=== PATIENT | male | born 1935 | race Caucasian/White ===

== ENCOUNTER → 2018-02-04 08:16 | Outpatient (CLI) | payer MEDICARE, OTHER, SELFPAY ==
--- NOTE | 2018-02-04 | DI.US.S_ITS ---
PROCEDURE: US ABDOMEN COMPLETE INDICATIONS: INCREASED LIVER FUNCTION TECHNIQUE: Real-time scanning was performed of the abdominal and retroperitoneal organs, with image documentation. COMPARISON: [facility], CT, CHEST ABDOMEN WITH CONTRAST, 01/22/2010, 10:51. [facility], CT, ABDOMEN/PELVIS WITH CONTRAST, 02/20/2017, 12:00. FINDINGS: Liver: Liver is diffusely heterogeneous, coarse in echotexture and enlarged Gallbladder: No gallstones identified. Normal gallbladder wall. No pericholecystic fluid. Negative sonographic Mcdowell sign. Biliary ducts: Intrahepatic bile ducts are non-dilated. Extrahepatic bile duct caliber measures 5.1 mm. Normal is 6-7 mm or less in diameter, or 10 mm or less post-cholecystectomy. Pancreas: Visualized portions of the pancreas are sonographically normal. Spleen: Spleen is enlarged at 26 cm in size and homogeneous in echotexture. Kidneys: Kidneys are normal in size and echotexture. Right kidney measures 11.4 cm long; left kidney measures 11.0 cm long. No hydronephrosis or nephrolithiasis. No solid masses. Aorta: Visualized aorta is normal in caliber at less than 3 cm. Iliacs: Proximal common iliac arteries are normal in caliber at less than 2.5 cm. IVC: Intrahepatic inferior vena cava is patent. Miscellaneous: No free abdominal fluid. Doppler assessment demonstrates a patency of the main portal vein, right and left portal vein as well as the right, mid and left hepatic veins. IMPRESSION: 1. Heterogeneous and coarse appearance of the hepatic parenchyma with liver enlargement as was seen on prior CT scan. 2. Marked splenomegaly redemonstrated. 3. No ascites. Dictated by: Ino VARELA Interpreted: Heavenly Auguste MD on 02/04/2018 at 11:10 Approved by: Heavenly Auguste M.D. on 02/04/2018 at 15:08
== END ==
PROVIDERS: PCP Family Medicine; Visit Provider Family Medicine
DX: R94.5 Abnormal results of liver function studies (principal); R16.1 Splenomegaly, not elsewhere classified
CPT/HCPCS: 76700

== ENCOUNTER 2018-02-05 06:17 | Emergency (ER) | payer MEDICARE, OTHER, SELFPAY ==
--- NOTE | 2018-02-05 06:32 | PC.NURSE ---
He states he was cleaning nare with a q-tip this am and he pushed it all the way into r nare.There is slight dried blood in his right nare.Air way patent.
--- NOTE | 2018-02-05 06:52 | ED_ITS ---
HPI - Epistaxis General Chief complaint: Nasal Problem Stated complaint: has a QTip stuck in his nose History of Present Illness HPI Narrative: HPI 82-year-old male who takes no blood thinners presents for treatment of a Q-tip in his right naris. Patient was attempting to clean his right nostril when he lost the end of his Q-tip. The patient then attempted to blindly retrieve the Q- tip with tweezers causing scant anterior epistaxis. Patient denies headache, changes in vision or hearing. ROS with no recent constitutional symptoms. Exam Gen: Pleasant, nontoxic-appearing, resting comfortably. HEENT: scant bright dried red blood the right naris. Visual inspection with the otoscope of the right naris with scant bright red blood and an inability to visualize the Q-tip or other foreign bodies. Posterior oropharynx with scant dark coagulated blood, no active bleeding, no Q-tip visualized. NC, AT, PEERL, EOMI. Resp: Unlabored respirations with a normal work of breathing. Card: Extremities warm and well perfused. GI: Non-distended. : Deferred MSK: No visible deformities, strength and tone without visually appreciable deficit. Neuro: AO x 3, no facial asymmetry, vision and hearing WNL. Heme/Lymph: Deferred Skin: Normal color with no visible lesions (other than noted above). Psych: Mood and affect appropriate. MDM Previous chart, nursing note, and vitals reviewed. A: 82-year-old male who takes no blood thinners presents for treatment of a Q- tip in his right naris. DDx & Evaluation: oxymetazoline applied to right nostril, patient evacuated right nostril, unable to visualize Q-tip. Right nostril irrigated with 10 mL normal saline, patient evacuated right nostril. Unable to visualize Q-tip. Oxymetazoline reapplied by patient's right naris with vigorous blowing of the right nostril, Q-tip expelled from nostril, both cotton buds intact. No postnasal bleeding or right anterior epistaxis on repeat exam. Patient discharged with PCP follow-up as needed. Impression: right nostril foreign body (please reference below for remainder of encounter information) Related Data Home Medications Medication Instructions Recorded Confirmed aspirin 81 mg PO QDAY #0 05/11/13 diltiazem HCl 360 mg PO HS #0 08/05/17 torsemide mg PO #0 12/08/17 Previous Rx's Medication Instructions Recorded gabapentin [Neurontin] 300 mg PO TID #540 tab 08/20/16 ibrutinib [Imbruvica] 140 mg PO TID #90 cap 12/26/16 valacyclovir [Valtrex] 1,000 mg PO TID #21 tab 10/28/17 [facility] Social History Smoking Status: Never smoker Discharge Plan Departure Prescriptions: No Action aspirin 81 MG tablet,delayed release (DR/EC) 81 mg PO QDAY Qty: 0 RF: 0 gabapentin [Neurontin] 300 MG capsule 300 mg PO TID Qty: 540 RF: 0 ibrutinib [Imbruvica] 140 MG capsule 140 mg PO TID Qty: 90 RF: 2 diltiazem HCl 360 MG capsule,extended release 24 hr 360 mg PO HS Qty: 0 RF: 0 valacyclovir [Valtrex] 1,000 MG tablet 1,000 mg PO TID Qty: 21 RF: 1 torsemide 20 MG tablet PO Qty: 0 RF: 0
== END 2018-02-05 06:58 | disposition home or self-care (01) ==
PROVIDERS: Emergency Provider Emergency Medicine; PCP Family Medicine
DX: T17.1XXA Foreign body in nostril, initial encounter (principal)
CPT/HCPCS: 99282

== ENCOUNTER 2018-02-07 21:04 | Inpatient (IN) | payer MEDICARE, OTHER, SELFPAY ==
[2018-02-07 21:14] VITALS: BP 155/90; PULSE 91; RESP 18; TEMP 37; O2SAT 91
--- NOTE | 2018-02-07 21:57 | PC.NURSE ---
family reports worsening confusion for several days following starting librium r/t etoh detox. on exam, pt is alert, oriented to place/self, disoriented to situation, negative FAST exam, lung sounds diminished r>l, abd distended/soft/nontender, +3 pitting edema r>l reported as baseline. Denies headache/soa/nausea/vomiting/dysuria/fever/chills/pain/discomfort, reports witnessed fall 2 days ago without injury.
--- NOTE | 2018-02-07 22:03 | DI.RAD.S_ITS ---
PROCEDURE: XR CHEST 1V INDICATIONS: ALTERED MENTAL STATUS TECHNIQUE: One view of the chest was acquired. COMPARISON: [facility], CR, XR CHEST 2V, 01/26/2018, 11:03. FINDINGS: Surgical changes and devices: Right lung surgical staple lines and right hilar surgical clips. There is right-sided volume loss. Lungs and pleura: No pleural effusions or pneumothorax. No acute consolidation. Scattered scarring/atelectasis. Previous left pleural effusion appears resolved. Scattered presumed high density calcified granulomas appear unchanged for example in the lateral left midlung. Mediastinum: Mediastinal contours appear normal. Heart size is normal. Bones and chest wall: No suspicious bony lesions. Overlying soft tissues appear unremarkable. IMPRESSION: No acute disease. Resolved left pleural effusion elsewhere no interval change. Dictated by: Dwayne Rodgers M.D. on 02/08/2018 at 7:21 Approved by: Dwayne Rodgers M.D. on 02/08/2018 at 7:23
--- NOTE | 2018-02-07 22:03 | DI.CT.S_ITS ---
PROCEDURE: CT HEAD/BRAIN WO CON INDICATIONS: ALTERED MENTAL STATUS TECHNIQUE: Noncontrast 4.5 mm thick angled axial sections acquired from the foramen magnum to the vertex, with coronal and sagittal reformats. For radiation dose reduction, the following was used: automated exposure control, adjustment of mA and/or kV according to patient size. COMPARISON: None. FINDINGS: Image quality: Excellent. CSF spaces: Basal cisterns are patent. No extra-axial fluid collections. The ventricles are symmetric in size and shape. Brain: No intracranial bleeds or masses. There is cerebral volume loss for age, with resultant ventricular and sulcal prominence. There are periventricular and deep white matter chronic small vessel ischemic changes. There is intracranial internal carotid artery atherosclerosis. Skull and face: Calvarium and visualized facial bones appear intact, without suspicious lesions. Sinuses: Visualized sinuses and mastoids are clear. IMPRESSION: Negative head CT. Dictated by: Dwayne Rodgers M.D. on 02/08/2018 at 7:05 Approved by: Dwayne Rodgers M.D. on 02/08/2018 at 7:06
[2018-02-07 22:19] LABS: Hematocrit 33.7 % (41-53); Hemoglobin 10.8 g/dL (13.5-17.5); Mean Corpuscular Hemoglobin 28.3 PG (26-34); Mean Corpuscular Volume 88.4 fL (80-100); Platelet Count 98 X10^3/uL (150-400); Red Blood Cell Count 3.82 X10^6/uL (4.5-5.9); Red Cell Distribution Width 16.2 % (11.6-14.8)
[2018-02-07 22:20] LABS: Add Manual Diff / Slide Review YES; Calcium 8.6 mg/dL (8.4-10.2); Estimated Glomerular Filt Rate > 60.0 mL/min (>60); Glucose 90 mg/dL (80-110); HEMOLYSIS < 15 (0-50); Magnesium 1.8 mg/dL (1.6-2.3); Potassium 4.3 mmol/L (3.4-5.1); Sodium 134 mmol/L (137-145)
[2018-02-07 22:22] VITALS: BP 142/69; PULSE 88; RESP 14; O2SAT 91
[2018-02-07 22:23] LABS: White Blood Cell Count 86.6 X10^3/uL (4.5-11.0)
[2018-02-07 22:33] LABS: Neutrophils Absolute Manual 6062 /uL (3000-5900); Total Cells Counted 100
[2018-02-07 22:35] LABS: Morphology Comment RARE GIANT PLATELETS
[2018-02-07 22:36] LABS: Smudge Cells 2+
[2018-02-07 22:37] LABS: Troponin I < 0.012 ng/mL (0.01-0.034)
[2018-02-07 22:38] LABS: Procalcitonin 0.07 ng/mL (<0.5)
[2018-02-07] MEDS: LORazepam 2 MG/ML SYRINGE IV (22:38)
[2018-02-07] MEDS: SODIUM CHLORIDE 0.9% 1,000 ML 500 ML IV (22:39)
[2018-02-07 23:00] VITALS: BP 143/63; PULSE 95; RESP 15; O2SAT 93
[2018-02-07] MEDS: MAGNESIUM SULFATE 2 GM, FOLIC ACID 1 MG, THIAMINE 100 MG, MULTIVITAMIN 10 ML in SODIUM ... IV (23:50)
[2018-02-07 23:52] VITALS: BP 137/63; PULSE 90; RESP 22; O2SAT 92
[2018-02-08] VITALS (17 sets, daily range): BP systolic 113–144; BP diastolic 40–79; PULSE 75–101; RESP 16–25; TEMP 36.7–37.2; O2SAT 88–99; BMI 29.9
--- NOTE | 2018-02-08 00:59 | PC.NURSE ---
assisted pt with urinal and standing position for void. Pt had increased RR and work of breathing, labored breathing with mild exertion. o2 sat at 86% in RA when returned to bed. Providing o2 by NC on 3L and pt appears to be more comfortable. informed MD and the above.
[2018-02-08 01:08] LABS: Appearance Urine UA CLEAR; Bilirubin Urine UA NEGATIVE (NEGATIVE); Color Urine UA YELLOW; Glucose Urine UA NEGATIVE (Normal); Ketones Urine UA NEGATIVE (NEGATIVE); Leukocyte Esterase Urine UA TRACE (NEGATIVE); Nitrite Urine UA NEGATIVE (NEGATIVE); Occult Blood Urine UA NEGATIVE (Negative); Protein Urine UA NEGATIVE (Negative)
[2018-02-08 01:10] LABS: Bacteria Urine Occasional (0-1); Squamous Epithelial Cell Urine 0-1 /HPF; WBC Urine 0-1/HPF (0-5/HPF)
[2018-02-08 01:11] LABS: Amorphous Sediment Urine 1+
[2018-02-08 01:12] LABS: Culture Indicated Urine Specimen Cultured
--- NOTE | 2018-02-08 01:12 | PC.NURSE ---
Pt soundly sleeping with light snoring at this time. O2 sat at 86-89% on 3LNC. RR 22/min abdominal breathing.
--- NOTE | 2018-02-08 01:14 | PC.NURSE ---
pt sleeping soundly with light snoring. o2 sat at 86-92% on 3LNC with RR 22/min.
--- NOTE | 2018-02-08 03:38 | ED_ITS ---
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 Patient is a company by family members who provide history. Patient has had difficulty walking and has believed to been having secondary incontinence as he cannot get up quickly enough. Denies fevers , chills, cough, dysuria, urinary frequency, decreased perineal sensation, back pain. Patient was drinking at least 6 g per day before absence. PCP notated 02/04/18 reviewed and notable for: progressive hairy cell leukemia, patient failing 4th line medical treatment, patient has poor overall performance status. Patient to continue Rituxan. Patient was recently seen by a hairy cell leukemia expert, Dr. Jaime. PCP Dr. Carlos Fry M/S/F/SocHx notable for: please see HPI; remainder reviewed with patient and in chart. ROS: Negative constitutional, eye, cardiovascular, pulmonary, GI, , MSK, skin , neurologic, psychiatric, endocrine unless noted in the HPI. Exam Gen: Pleasant, non-toxic appearing, resting comfortably. Appears mildly confused. HEENT: NC, AT, PEERL, EOMI. Resp: Clear to auscultation bilaterally, normal work of breathing, no accessory muscle usage. Card: Regular rate and rhythm with no murmurs, rubs, or gallops, extremities warm and well perfused. Bilateral lower extremities with 2+ pitting edema to the knees. GI: Non-tender to palpation throughout all quadrants, no focal tenderness at McBurney's point, negative Mcdowell's sign, mildly distended, no rebound or guarding. : No suprapubic tenderness to palpation. MSK: No visible deformities, strength and tone without visually appreciable deficit. Skin: Normal color with no visible lesions. Neuro: Gen - Alert, oriented to self, season, but not year, struggles to remember the current President, able to spell the word world forwards but not backwards, no facial asymmetry, no gaze preference, no slurring of speech. Pupils equal and reactive, EOMI, no facial asymmetry, no nystagmus, phonation intact, SCM 5/5 bilaterally. No tremors of extremities. Patient ambulatory with a broad-based markedly unsteady gait requiring immediate assistance to avoid falling. Psych: mildly confused, mood and affect otherwise appropriate. Labs / Imaging: EKG: SR 88 bpm, no ST segment elevations or depressions, no LBBB. CT head: no acute intracranial abnormality. WBC 86.6, HB 10.8, PLT 98, blast cells not reported, sodium 134, potassium 4.3, creatinine 1.00, glucose 90 troponin less than 0.012, pro-calcitonin 0.07 UA - 0-1 WBCs, 0-1 squamous epithelial cells, occasional bacteria, negative blood, negative nitrate, trace leukocyte esterase. CXR: no acute cardiopulmonary disease process. Radiologist read pending. MDM Previous chart, nursing note, labs, imaging, and vitals reviewed. 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 DDx: intracranial process, MAHA, TTP, Wernicke's encephalopathy, delirium tremens, UTI, pneumonia, hyperviscosity syndrome, blast crisis Evaluation: * patient with mild confusion, broad based gait, and unsteadiness. Suspect a multifactorial cause given his recent alcohol cessation and/or Wernicke's encephalopathy as well as apparently worsening hairy cell leukemia. Patient given Ativan, folate, thiamine (a banana bag) without significant change in symptoms. * No clear evidence of active infectious process. Given the absence of fever, meningismus, or headache doubt meningitis or infectious encephalitis. * Patient has relatively recent notable changes in his CBC, on 12/22/17 he had a WBC of 30.1, HB of 12.0, and platelets of 67. Today his hemoglobin as decreased to 10.8, is WBCs have increased to 86.6, and is platelets are now 98. Given these laboratory values as well as an absence of cutaneous findings, or changes strongly doubt MAHA/TTP/HUS. * While the patient has notable leukocytosis, there is no unequivocal evidence of hyperviscosity syndrome, peripheral smear pending. * Doubt blast crisis pending further evaluation. Impression: AMS (please reference below for remainder of encounter information) Related Data Home Medications Medication Instructions Recorded Confirmed aspirin 81 mg PO QDAY #0 05/11/13 diltiazem HCl 360 mg PO HS #0 08/05/17 albuterol sulfate [ProAir HFA] 1 puff INHALATION Q4-6H PRN 02/07/18 02/07/18 atorvastatin 10 mg PO DAILY 02/07/18 02/07/18 chlordiazepoxide HCl 02/07/18 furosemide 20 mg PO DAILY 02/07/18 02/07/18 Previous Rx's Medication Instructions Recorded gabapentin [Neurontin] 300 mg PO TID #540 tab 08/20/16 Allergies Allergy/AdvReac Type Severity Reaction Status Date / Time No Known Drug Allergies Allergy Verified 02/07/18 21:21 Exam Initial Vital Signs Initial Vital Signs: Vital Signs Temperature 98.6 F 02/07/18 21:14 Pulse Rate 91 H 02/07/18 21:14 Respiratory Rate 18 02/07/18 21:14 Blood Pressure 155/90 H 02/07/18 21:14 Pulse Oximetry 91 02/07/18 21:14 Course Orders Ordered: ED Orders 02/07/18 21:46 Basic Metabolic Panel Stat Complete Blood Count AUTO DIFF Stat Magnesium Stat Procalcitonin Stat Troponin I Stat 02/07/18 22:03 CT head/brain wo con Stat XR chest 1V Stat EKG-12 Lead Stat 02/08/18 00:49 Urinalysis and Microscopic Stat Urine Culture Stat 02/08/18 03:34 Complete Blood Count MAN DIFF Stat Magnesium Sulfate 2 gm/ Folic Acid 1 mg/ Thiamine HCl 100 mg / Multivitamins 10 ml/ Sodium Chloride 1,015.2 mls @ 125 mls/hr IV NOW ONE Stop: 02/08/18 06:10 Last Admin: 02/07/18 23:50 Dose: 125 mls/hr Discontinued Medications Sodium Chloride (Normal Saline 0.9%) 1,000 mls @ 1,000 mls/hr IV BOLUS ONE Stop: 02/07/18 23:04 Last Admin: 02/07/18 22:39 Dose: 500 mls/hr Lorazepam (Ativan) 2 mg IV NOW ONE Stop: 02/07/18 22:04 Last Admin: 02/07/18 22:38 Dose: 2 mg Vital Signs - 8 hr 02/07/18 21:14 02/07/18 22:22 02/07/18 23:00 Temperature 98.6 F Pulse Rate 91 H 88 95 H Respiratory Rate 18 14 15 Blood Pressure 155/90 H Blood Pressure [Right Arm] 142/69 H 143/63 H Pulse Oximetry 91 91 93 02/07/18 23:52 02/08/18 01:14 02/08/18 03:28 Temperature Pulse Rate 90 89 96 H Respiratory Rate 22 22 20 Blood Pressure Blood Pressure [Right Arm] 137/63 H 131/64 H 138/70 H Pulse Oximetry 92 88 L 96 MDM - Altered Mental Status Lab Data Result diagrams: 02/07/18 21:46 02/07/18 21:46 Lab Results 02/07/18 02/07/18 02/07/18 Range/Units 21:46 21:46 21:46 WBC 86.6 H* (4.5-11.0) X10^3/uL RBC 3.82 L (4.5-5.9) X10^6/uL Hgb 10.8 L (13.5-17.5) g/dL Hct 33.7 L (41-53) % MCV 88.4 (80-100) fL MCH 28.3 (26-34) PG MCHC 32.0 (30-36) % RDW 16.2 H (11.6-14.8) % Plt Count 98 L (150-400) X10^3/uL Neut % (Auto) Not Reportable Lymph % (Auto) Not Reportable Brewster % (Auto) Not Reportable Eos % (Auto) Not Reportable Baso % (Auto) Not Reportable Total Counted 100 Seg Neutrophils % 7.0 L (38-70) % Lymphocytes % (Manual) 2.0 L (25-45) % Atypical Lymphs % 32.0 H ( - 0) % Monocytes % (Manual) 56.0 H (2-11) % Eosinophils % (Manual) 1.0 L (2-4) % Blast Cells % 2.0 H (-0) % Neutrophils # (Manual) 6062 H (9937-4621) /uL Differential Comment Rare giant platelets RBC Morphology Not Reportable Sodium 134 L (137-145) mmol/L Potassium 4.3 (3.4-5.1) mmol/L Chloride 95.0 L (98-107) mmol/L Carbon Dioxide 32.0 (22-32) mmol/L BUN 17.0 (9-20) mg/dL Creatinine 1.00 (0.66-1.25) mg/dL Estimated GFR > 60.0 (>60) mL/min BUN/Creatinine Ratio 17.0 (6-22) Glucose 90 (80-110) mg/dL Calcium 8.6 (8.4-10.2) mg/dL Magnesium 1.8 (1.6-2.3) mg/dL Troponin I < 0.012 (0.01-0.034) ng/mL Procalcitonin 0.07 (<0.5) ng/mL Urine Color Urine Appearance Urine pH (4.5-8.0) Ur Specific Presto (1.000-1.035) Urine Protein (Negative) Urine Glucose (UA) (Normal) g/dL Urine Ketones (NEGATIVE) Urine Occult Blood (Negative) Urine Nitrate (NEGATIVE) Urine Bilirubin (NEGATIVE) Urine Urobilinogen (0.2) E.U./dL Ur Leukocyte Esterase (NEGATIVE) Urine WBC (0-5/HPF) Ur Squamous Epith Cells Amorphous Sediment Urine Bacteria (None) Ur Culture Indicated? Micro UA Comment 02/08/18 Range/Units 00:49 WBC (4.5-11.0) X10^3/uL RBC (4.5-5.9) X10^6/uL Hgb (13.5-17.5) g/dL Hct (41-53) % MCV (80-100) fL MCH (26-34) PG MCHC (30-36) % RDW (11.6-14.8) % Plt Count (150-400) X10^3/uL Neut % (Auto) Lymph % (Auto) Brewster % (Auto) Eos % (Auto) Baso % (Auto) Total Counted Seg Neutrophils % (38-70) % Lymphocytes % (Manual) (25-45) % Atypical Lymphs % ( - 0) % Monocytes % (Manual) (2-11) % Eosinophils % (Manual) (2-4) % Blast Cells % (-0) % Neutrophils # (Manual) (8314-4208) /uL Differential Comment RBC Morphology Sodium (137-145) mmol/L Potassium (3.4-5.1) mmol/L Chloride (98-107) mmol/L Carbon Dioxide (22-32) mmol/L BUN (9-20) mg/dL Creatinine (0.66-1.25) mg/dL Estimated GFR (>60) mL/min BUN/Creatinine Ratio (6-22) Glucose (80-110) mg/dL Calcium (8.4-10.2) mg/dL Magnesium (1.6-2.3) mg/dL Troponin I (0.01-0.034) ng/mL Procalcitonin (<0.5) ng/mL Urine Color Yellow Urine Appearance Clear Urine pH 7.0 (4.5-8.0) Ur Specific Presto 1.010 (1.000-1.035) Urine Protein Negative (Negative) Urine Glucose (UA) Negative (Normal) g/dL Urine Ketones Negative (NEGATIVE) Urine Occult Blood Negative (Negative) Urine Nitrate Negative (NEGATIVE) Urine Bilirubin Negative (NEGATIVE) Urine Urobilinogen 1.0 (0.2) E.U./dL Ur Leukocyte Esterase Trace H (NEGATIVE) Urine WBC 0-1/hpf (0-5/HPF) Ur Squamous Epith Cells 0-1 /hpf Amorphous Sediment 1+ Urine Bacteria Occasional (0-1) (None) Ur Culture Indicated? Specimen cultured Micro UA Comment Not Reportable
[2018-02-08 03:48] LABS: Hematocrit 32.1 % (41-53); Hemoglobin 10.3 g/dL (13.5-17.5); Mean Corpuscular HGB Conc 32.1 % (30-36); Mean Corpuscular Hemoglobin 28.4 PG (26-34); Mean Corpuscular Volume 88.7 fL (80-100); Platelet Count 90 X10^3/uL (150-400); Red Blood Cell Count 3.62 X10^6/uL (4.5-5.9); Red Cell Distribution Width 16.2 % (11.6-14.8)
[2018-02-08 03:56] LABS: White Blood Cell Count 81.5 X10^3/uL (4.5-11.0)
[2018-02-08] MEDS: LORazepam 2 MG/ML SYRINGE IV (03:57)
--- NOTE | 2018-02-08 04:08 | PC.NURSE ---
pt repeately requesting to get out of bed to blow my nose after the redirection. Pt states must get out of bed to blow nose. Appears to be pt is a bit confused in situation. Informed MD and obtained Ativan order to prevent anxiousness. Pt assisted to urinal and to stand position to void and back to bed. Pt resting with eyes closed. RR increased with labored breathing while standing and try to void.
[2018-02-08 04:09] LABS: Neutrophils Absolute Manual 8150 /uL (3000-5900); Total Cells Counted 100
[2018-02-08 04:10] LABS: Smudge Cells 2+
--- NOTE | 2018-02-08 06:06 | PC.NURSE ---
Late Entry for 0400-pt resting calmly and in NAD after 1mg of Ativan administration. Held additional 1mg Ativan from MD's order at this time.
--- NOTE | 2018-02-08 07:17 | PC.ADMIT ---
[id number] Admission Note: The patient,Doc Chavis,82 y/o, was given written information regarding hospital policies, unit procedures and contact persons. Patient's smoking status: Former smoker. Vital Signs - 8 hr 02/07/18 23:52 02/08/18 01:14 02/08/18 02:00 Temperature Pulse Rate 90 89 88 Respiratory Rate 22 22 20 Blood Pressure Blood Pressure [Right Arm] 137/63 H 131/64 H 113/40 L Pulse Oximetry 92 88 L 99 02/08/18 03:00 02/08/18 03:28 02/08/18 04:00 Temperature Pulse Rate 96 H 96 H 90 Respiratory Rate 22 20 20 Blood Pressure Blood Pressure [Right Arm] 138/70 H 138/70 H 135/67 H Pulse Oximetry 97 96 96 02/08/18 04:30 02/08/18 05:00 02/08/18 06:15 Temperature 98.1 F Pulse Rate 90 92 H 75 Respiratory Rate 20 20 16 Blood Pressure 144/79 H Blood Pressure [Right Arm] 135/67 H 124/69 H Pulse Oximetry 96 98 99 0550-Patient brought to room 226, very drowsy, unable to answer all admit questions, dozing frequently. Short of breath with exertion and while lying flat. SpO2 98% on 2L when recovered, coarse LS anteriorly. Banana bag infusing into LAC PIV. Clothes, shoes, dentures and glasses in room , patient says his wallet is at home. Call light in reach, bed alarm on.
[2018-02-08] MEDS: SODIUM CHLORIDE 0.9% 1,000 ML 125 ML IV (07:50)
[2018-02-08] MEDS: FUROSEMIDE 20 MG/2 ML VIAL IV (09:01)
[2018-02-08] MEDS: CEFTRIAXONE 2 GM/50 ML FROZ.PIGGY IV (09:04)
--- NOTE | 2018-02-08 09:14 | PC.NURSE ---
Addendum entered by Ronel Olmos R.N. 02/08/18 11:42: PT SLIGHTLY MORE AWAKE, REFUSING LIQUIDS AND FOOD AT THIS TIME. INCONTINENT OF URINE, CHANGED AND REPOSITIONED. BED ALARM ON. Original Note: Pt drowsy but arousable, oriented to self place and recognized Dr Mon. Denies pain and shortness of breath. Lab drawing blood cultures, bed alarm on.
--- NOTE | 2018-02-08 13:05 | PM.HP.1 ---
History of Present Illness Chief complaint: CANCER PT,DETOX,DELERIOUS Narrative: Patient is a 82-year-old male with history of hairy cell leukemia and concern for possible alcohol abuse. Patient stopped drinking last Thursday. Has been on Librium since that time. Otherwise patient had been doing well up until Thursday. Most of history is from . Had a cough. But not much. Just slowly started becoming more confused. Was not eating. Normal urine and bowel function. Saint on things. Not his usual self. Was sleeping. No other changes. Has not drank since last week. Patient has not had any fevers or chills. No visual changes. Was not complaining of headaches. Actually was not complaining of any pain. No nausea or vomiting. No cough. No urinary symptoms. No change in bowel movements. No blood in his stool or blood in any other location. Otherwise review of systems is negative. Patient has a history of hairy cell leukemia and significant edema. He has been feeling his leukemia treatment and recently had been seen in [place]. At that point they did not feel that he was healthy enough for some of the other options available. Some concern that he may be approaching the end of his treatment capability. No other changes. Has not been on active therapy. Past medical history. History of smoking. Glucose intolerance Hypertension Rudy cell leukemia Alcohol abuse Past surgical history vasectomy in 1970, appendicitis 1968 lobectomy left lung 2000 Social history. Patient lives with . Retired. Good family support in the area. No street drugs. Recently stopped alcohol. Quit smoking in [facility] Social History household members: spouse Smoking Status: Former smoker Meds Home Medications Medication Instructions Recorded Confirmed Type aspirin 81 mg PO QDAY #0 05/11/13 02/08/18 History diltiazem HCl 360 mg PO HS #0 08/05/17 02/08/18 History albuterol sulfate [ProAir HFA] 2 puff INHALATION Q4-6H PRN 02/07/18 02/08/18 History atorvastatin 10 mg PO DAILY 02/07/18 02/07/18 History chlordiazepoxide HCl 10 mg PO TID 02/07/18 02/08/18 History furosemide 20 mg PO DAILY 02/07/18 02/07/18 History Imbruvica 140 mg PO QAM 02/08/18 02/08/18 History albuterol sulfate [ProAir HFA] 2 puff INHALATION Q4HR PRN 02/08/18 02/08/18 History cholecalciferol (vitamin D3) 2,000 unit PO DAILY 02/08/18 02/08/18 History [Vitamin D3] gabapentin 300 - 600 mg PO BEDTIME PRN 02/08/18 02/08/18 History Generic Name Dose Route Start Last Admin Trade Name Román PRN Reason Stop Dose Admin Acetaminophen 650 mg 02/08/18 08:19 Tylenol PO Q6HR PRN As Needed for Fever/Mild Pain Enoxaparin Sodium 40 mg 02/08/18 09:00 02/08/18 13:06 Lovenox SUBCUT 40 mg DAILY LUIS A Administration Sodium Chloride 1,000 mls @ 125 mls/hr 02/08/18 05:30 02/08/18 08:58 Normal Saline 0.9% IV 100 mls/hr CONT LUIS A Infusion Ceftriaxone Sodium/Dextrose 2 gm in 50 mls @ 100 mls/hr 02/08/18 09:00 02/08/18 10:35 Rocephin IV Infused Q24H LUIS A Infusion Sodium Chloride 1,000 mls @ 100 mls/hr 02/08/18 08:15 Normal Saline 0.9% IV CONT LUIS A Lorazepam 1 mg 02/08/18 05:21 Ativan IV Q2HR PRN Withdraw Allergies Allergy/AdvReac Type Severity Reaction Status Date / Time No Known Drug Allergies Allergy Verified 02/07/18 21:21 Review of Systems Review of Systems Please see history and physical. All systems negative except what described. Systems times 12. Exam Vital Signs (past 8 hours): Vital Signs - 8 hr 02/08/18 06:15 02/08/18 08:15 02/08/18 08:16 Temperature 98.1 F 98.8 F Pulse Rate 75 94 H Respiratory Rate 16 18 Blood Pressure 144/79 H 143/65 H Pulse Oximetry 99 97 02/08/18 08:22 02/08/18 11:23 02/08/18 11:43 Temperature 98.6 F Pulse Rate 92 H Respiratory Rate 16 Blood Pressure 142/69 H Pulse Oximetry 97 97 Pulse Oximetry 97 Oxygen Delivery Method Nasal Cannula Oxygen Flow Rate 2 Narrative Exam Narrative: Sleepy male in no acute distress. Skin with no rash normal turgor. Mucous membranes moist. Pupils PERRLA. No oral lesions. Neck is supple without adenopathy JVD or bruits. Lungs with diffuse mild rhonchi occasional crackles. No retractions. Heart regular rate and rhythm without murmurs clicks rubs or gallops. Abdomen is soft positive bowel sounds skin is 26 cm below left costal margin. Liver is slightly below rib line. No tenderness. Soft. Extremities without clubbing. Does have 2+ edema. There is some mild redness of the skin. Slight warmth. No ulcers. Neurologically is nonfocal but moving slowly. Is alert does know where he is whose family is but does not really know the date. Objective Labs Result Diagrams: 02/08/18 03:40 02/07/18 21:46 Labs: Laboratory Results - last 24 hr 02/07/18 02/07/18 02/07/18 21:46 21:46 21:46 WBC 86.6 H* RBC 3.82 L Hgb 10.8 L Hct 33.7 L MCV 88.4 MCH 28.3 MCHC 32.0 RDW 16.2 H Plt Count 98 L Neut % (Auto) Not Reportable Lymph % (Auto) Not Reportable [place] % (Auto) Not Reportable Eos % (Auto) Not Reportable Baso % (Auto) Not Reportable Total Counted 100 Seg Neutrophils % 7.0 L Lymphocytes % (Manual) 2.0 L Atypical Lymphs % 32.0 H Monocytes % (Manual) 56.0 H Eosinophils % (Manual) 1.0 L Blast Cells % 2.0 H Neutrophils # (Manual) 6062 H Differential Comment Rare giant platelets RBC Morphology Not Reportable Sodium 134 L Potassium 4.3 Chloride 95.0 L Carbon Dioxide 32.0 BUN 17.0 Creatinine 1.00 Estimated GFR > 60.0 BUN/Creatinine Ratio 17.0 Glucose 90 Calcium 8.6 Magnesium 1.8 Troponin I < 0.012 Procalcitonin 0.07 Urine Color Urine Appearance Urine pH Ur Specific [place] Urine Protein Urine Glucose (UA) Urine Ketones Urine Occult Blood Urine Nitrate Urine Bilirubin Urine Urobilinogen Ur Leukocyte Esterase Urine WBC Ur Squamous Epith Cells Amorphous Sediment Urine Bacteria Ur Culture Indicated? Micro UA Comment 02/08/18 02/08/18 00:49 03:40 WBC 81.5 H* RBC 3.62 L Hgb 10.3 L Hct 32.1 L MCV 88.7 MCH 28.4 MCHC 32.1 RDW 16.2 H Plt Count 90 L Neut % (Auto) Lymph % (Auto) [place] % (Auto) Eos % (Auto) Baso % (Auto) Total Counted 100 Seg Neutrophils % 10.0 L Lymphocytes % (Manual) 3.0 L Atypical Lymphs % 40.0 H Monocytes % (Manual) 43.0 H Eosinophils % (Manual) Blast Cells % 4.0 H Neutrophils # (Manual) 8150 H Differential Comment . RBC Morphology Not Reportable Sodium Potassium Chloride Carbon Dioxide BUN Creatinine Estimated GFR BUN/Creatinine Ratio Glucose Calcium Magnesium Troponin I Procalcitonin Urine Color Yellow Urine Appearance Clear Urine pH 7.0 Ur Specific [place] 1.010 Urine Protein Negative Urine Glucose (UA) Negative Urine Ketones Negative Urine Occult Blood Negative Urine Nitrate Negative Urine Bilirubin Negative Urine Urobilinogen 1.0 Ur Leukocyte Esterase Trace H Urine WBC 0-1/hpf Ur Squamous Epith Cells 0-1 /hpf Amorphous Sediment 1+ Urine Bacteria Occasional (0-1) Ur Culture Indicated? Specimen cultured Micro UA Comment Not Reportable Assessment & Plan Plan: Plan: Metabolic encephalopathy. Multiple possible causes. Could be infected DU. Difficult to tell with white count. CT was negative but will probably need MRI tomorrow depending on how things go. I do not think he had a definitive stroke. Meningitis seems unlikely possible pneumonia. Possible UTI. Does have some cellulitis possibly which could be impacting him. Will cover weight now with Rocephin. Will obtain cultures prior. Will hold benzodiazepines to make sure that isn't the cause. Alcohol withdrawal seems unlikely but possible. Certainly not agitated. Able see how things go. Re-evaluate in a.m.. Elevated white count significantly more elevated than has been in the past. Probably is hairy cell leukemia. Will discuss with oncologist tomorrow not in today. Could be secondary to infection also. Cultures and antibiotics were started. Rudy cell leukemia. Sadly may be at the end of this treatment. I have discussed with family and him although I am not sure how much he is understanding. Re-evaluate in a.m. will see how things go after I discuss with his oncologist. History of elevated blood sugar at this point I do not think it is significant will follow closely recheck a.m.. History of hypertension. Due to his mental status on going to hold his pills his blood pressure seems okay and will re-evaluate in a.m.. DVT prophylaxis. Will continue SCDs and Lovenox. GI prophylaxis not needed at this time. Will watch closely. Code status. No code discussed with . Disposition. Clearly will be here 2 or 3 days. Have many things to clarify. We will see how he responds to treatment
[2018-02-08] MEDS: ENOXAPARIN 40 MG/0.4 ML SYRINGE SUBCUT (13:06)
--- NOTE | 2018-02-08 14:01 | PC.NURSE ---
Pt up to bsc with two person assist, pt weak, needs cueing. Unable to void at this time. Assisted back to bed, denies pain, took a few sips of water. Bed alarm on.
[2018-02-09] VITALS (14 sets, daily range): BP systolic 114–151; BP diastolic 56–70; PULSE 84–92; RESP 16–25; TEMP 36.4–37.1; O2SAT 91–98
--- NOTE | 2018-02-09 | DI.RAD.S_ITS ---
PROCEDURE: XR CHEST 1V INDICATIONS: shortness of breath TECHNIQUE: One view of the chest was acquired. COMPARISON: [facility], CR, XR CHEST 1V, 02/07/2018, 21:46. FINDINGS: Surgical changes and devices: Postoperative changes of right thoracotomy/lobectomy. Lungs and pleura: Both costophrenic angles are blunted indicating small effusions or pleural scarring. Calcified granuloma left midlung field laterally. Mediastinum: Mediastinal contours show postoperative changes on the right. No recurrent mass lesions identified. Heart size is borderline. Bones and chest wall: No suspicious bony lesions. Overlying soft tissues appear unremarkable. IMPRESSION: 1. Small bilateral pleural effusions. Pleural parenchymal scarring at the right base is likely considering postoperative changes in the right hemithorax. 2. Calcified granuloma in the lingula. Dictated by: Robert Hensley M.D. on 02/09/2018 at 9:21 Approved by: Robert Hensley M.D. on 02/09/2018 at 9:26
[2018-02-09] MEDS: FUROSEMIDE 20 MG TABLET PO ×2 (01:57→08:58)
--- NOTE | 2018-02-09 03:05 | PC.NURSE ---
Addendum entered by Triniadd Clements R.N. 02/09/18 06:48: 0645 Pt had small void in urinal overnight. Denies need to void. Bladder scan showed 203ml. Pt resting in chair, BLE elevated as best we can with pillows. Chair alarm on. Original Note: Addendum entered by Trinidad Clements R.N. 02/09/18 05:07: 0505 Pt has been awake most of the night. Flat affect and irritable with care. Pt confused at times asking if he can go into another bedroom, although aware he is at [facility]. Pt has been in the bedside chair for about an hour as well as sitting up at the beside, alarm in place and pt has set alarm off several times overnight. PT wants to go to sleep but states that he does not want to sleep in the hospital. Sitting at he bedside, bed alarm on. Sats on 3l O2 95%, breathing appears even and unlabored at this time. Refused offer for Albuterol treatment earlier. Original Note: patient service rep: 0000 Pt alert, conversive. Oriented to self and place. Found on RA with sats 90-91%. Placed back on the 2L O2 that pt had been on with sats increasing to 93%, pt continues to feel SOB. Pt having increased work of breathing, wanting to sit upright and requesting oxygen and inhaler. RT notified as well as , new order for RT to eval and treat as well as one time of Lasix and restarting pt on Lasix per home routine. Denies pain.
[2018-02-09 05:27] LABS: Alanine Aminotransferase 31 IU/L (21-72); Albumin 3.3 g/dL (3.5-5.0); Albumin Globulin Ratio 1.5 (1.0-2.8); Alkaline Phosphatase 124 U/L (38-126); Aspartate Aminotransferase 52 IU/L (17-59); Bilirubin Total 0.7 mg/dL (0.2-1.3); Calcium 8.5 mg/dL (8.4-10.2); Estimated Glomerular Filt Rate > 60.0 mL/min (>60); Globulin 2.2 g/dL (1.7-4.1); Glucose 93 mg/dL (80-110); HEMOLYSIS < 15 (0-50); Potassium 4.9 mmol/L (3.4-5.1); Sodium 140 mmol/L (137-145); Total Protein 5.5 g/dL (6.3-8.2)
[2018-02-09 05:30] LABS: Add Manual Diff / Slide Review YES; Hematocrit 32.8 % (41-53); Hemoglobin 10.5 g/dL (13.5-17.5); Mean Corpuscular HGB Conc 31.8 % (30-36); Mean Corpuscular Hemoglobin 28.2 PG (26-34); Mean Corpuscular Volume 88.6 fL (80-100); Platelet Count 97 X10^3/uL (150-400); Red Blood Cell Count 3.71 X10^6/uL (4.5-5.9); Red Cell Distribution Width 16.9 % (11.6-14.8); White Blood Cell Count 90.4 X10^3/uL (4.5-11.0)
[2018-02-09] MEDS: ALBUTEROL 2.5 MG/3 ML NEB INH ×2 (05:54→12:56)
[2018-02-09 06:53] LABS: Neutrophils Absolute Manual 4520 /uL (3000-5900); Smudge Cells 2+; Total Cells Counted 100
[2018-02-09 06:54] LABS: Anisocytosis 1+; Poikilocytosis 1+
--- NOTE | 2018-02-09 07:18 | P.PN_ITS ---
Subjective Interval history: Patient with difficult night. Not complaining of any pain. Had some respiratory distress last night. Was given extra Lasix and seems to be doing better. Very restless. Is wishing to go home. Slightly more clear this morning. No headaches. No other changes. Date Patient Seen: 02/09/18 Time Patient Seen: 07:14 Exam Vital Signs (past 8 hours): Vital Signs - 8 hr 3 02/09/18 01:30 02/09/18 04:26 02/09/18 04:56 Temperature 98.1 F Pulse Rate 84 Respiratory Rate 16 Blood Pressure 114/56 L Pulse Oximetry 94 98 95 3 02/09/18 05:58 02/09/18 06:10 02/09/18 06:18 Temperature Pulse Rate Respiratory Rate Blood Pressure Pulse Oximetry 95 95 95 Pulse Oximetry 95 Oxygen Delivery Method Room Air Oxygen Flow Rate 3 Narrative Exam Narrative: Alert elderly fatigue male in no acute distress sitting in chair. Neck supple without adenopathy JVD or bruits. Lungs with mild diffuse crackles and occasional wheeze. Heart regular rate and rhythm. Abdomen is soft positive bowel sounds nontender. Extremities without cyanosis clubbing edema. He is more alert although some fatigue. Does know who I am does know the year. Knows he is in the hospital. Knows his is Tianna. Objective Labs Result Diagrams: 02/09/18 05:02 02/09/18 05:02 Labs: Laboratory Results - last 24 hr 02/09/18 02/09/18 05:02 05:02 WBC 90.4 H* RBC 3.71 L Hgb 10.5 L Hct 32.8 L MCV 88.6 MCH 28.2 MCHC 31.8 RDW 16.9 H Plt Count 97 L Neut % (Auto) Not Reportable Lymph % (Auto) Not Reportable [place] % (Auto) Not Reportable Eos % (Auto) Not Reportable Baso % (Auto) Not Reportable Total Counted 100 Seg Neutrophils % 5.0 L Lymphocytes % (Manual) 1.0 L Atypical Lymphs % 23.0 H Monocytes % (Manual) 68.0 H Eosinophils % (Manual) 1.0 L Blast Cells % 2.0 H Neutrophils # (Manual) 4520 Poikilocytosis 1+ H Anisocytosis 1+ H Sodium 140 Potassium 4.9 Chloride 101.0 Carbon Dioxide 30.0 BUN 14.0 Creatinine 1.00 Estimated GFR > 60.0 BUN/Creatinine Ratio 14.0 Glucose 93 Calcium 8.5 Total Bilirubin 0.7 AST 52 ALT 31 Alkaline Phosphatase 124 Total Protein 5.5 L Albumin 3.3 L Globulin 2.2 Albumin/Globulin Ratio 1.5 Assessment & Plan Plan: Plan: Metabolic encephalopathy slightly improved. Certainly nonfocal neuro exam. Could be secondary to respiratory issues. Could be secondary to his leukemia. Certainly not in good control. Will discuss this with oncologist hopefully today. I do not think he needs a spinal tap will have to consider that. Otherwise seems to be stable. Slightly improved. May be secondary to benzodiazepines that have been used. Hopefully he will clear more today. Will continue care and follow. Dyspnea. Patient has had persistent dyspnea. Echo in the past has been negative. May be fluid overload. May be secondary to his current issue. Of leukemia. I need to figure this out completely. Whether not he has infected will repeat chest x-ray today. Will add Zithromax and discuss with oncologist. Rudy cell leukemia. Clearly under control. Wonder how much of this is definitively improvable. Will discuss with oncologist today. Will continue to follow. History of hypertension. No other change. Stable. No meds at this time. GI prophylaxis not needed at this time. DVT prophylaxis on SCDs and Lovenox. Disposition. Unclear at this time. Will need to discuss with oncologist and possibly get internal medicine consult.
[2018-02-09] MEDS: CEFTRIAXONE 2 GM/50 ML FROZ.PIGGY IV (08:58)
[2018-02-09] MEDS: SODIUM CHLORIDE 0.9% 250 ML 21 ML IV (08:59)
[2018-02-09] MEDS: SODIUM CHLORIDE 0.9% FLUSH 10 ML IV (08:59)
[2018-02-09] MEDS: AZITHROMYCIN 500 MG in DEXTROSE 5% IN WATER 250 ML IV (10:06)
--- NOTE | 2018-02-09 11:47 | PT.IIE ---
Physical Therapy Inpatient Evaluation/Re-Eval M1 PT/OT-IP Prior Functional Status Start: 02/09/18 11:30 Freq: NEEDED Status: Active Protocol: Document 02/09/18 11:31 AB (Rec: 02/09/18 11:46 AB [id number]) Medical Review Prior Functional Status Medical History Reviewed Yes Mobility and Gait pt's spouse and daughter stated that pt requires assist with outdoor mobility and stair climbing. has been shuffling and holds on to the dejesus for indoor ambulation. Social History Household Members spouse Living Arrangements House Number of Floors (Floors) One Floor Number of Stairs To Enter/Railing? has 7 steps with bilateral wide rails and can only hold on to one rail at a time Home Environment Standard Height Toilet Walk in Shower Built-In Shower Seat Home Equipment Hand Held Shower Employment Status Retired Additional Social History Comment daughter lives a few miles away M2 PT-IP Current Condition Start: 02/09/18 11:30 Freq: NEEDED Status: Active Protocol: Document 02/09/18 11:31 AB (Rec: 02/09/18 11:46 AB [id number]) Physical Therapy Current Condition Current Condition Evaluation Date 02/09/18 Treatment Diagnosis cancer, detox; difficulty in walking Onset Date 02/08/18 M3 PT-IP Subjective Start: 02/09/18 11:30 Freq: NEEDED Status: Active Protocol: Document 02/09/18 11:31 AB (Rec: 02/09/18 11:46 AB [id number]) Subjective Physical Therapy Visit Type Type Initial Evaluation Visit Start Time 09:45 Visit Stop Time 10:17 Total Visit Minutes 32 Number of PULP GRINDER Visits 0 Physical Therapy Visit Comments Patient Comments pt requested to go back to bed Patient/Caregiver Goals for pt to go home if possible M4 PT-IP Mobility and Gait Start: 02/09/18 11:30 Freq: NEEDED Status: Active Protocol: Document 02/09/18 11:31 AB (Rec: 02/09/18 11:46 AB [id number]) PT-Bed Mobility Assessment Sit to Supine Sit to Supine Maximum Assistance PT-Transfer Assessment Sit to and From Stand Sit to and from Stand Moderate Assistance Equipment Transfer Assistive Device Gait Belt Front Wheeled Walker Orthotic/Prosthetic Devices or Brace: No Transfers Transfer Destination Bed Gait Assessment Gait Gait Assistance Required: Moderate Assistance Distance (Feet) (feet) 12 Assistive Devices Assistive Device Gait Belt Front Wheeled Walker Orthotic/Prosthetic Devices or Brace: No Gait Deviations General Gait Pattern Decreased Stride Length Decreased Feet Clearance Factors Limiting Gait Function Factors Limiting Gait Function Decreased Activity Tolerance Decreased Strength Poor Balance Poor Safety Awareness PT-Balance Assessment Sitting Balance and Reactions Static Sitting Balance Ability Good Dynamic Sitting Balance Ability Fair Standing Balance and Reactions Static Standing Balance Ability Fair Dynamic Standing Balance Ability Poor M5 PT-IP Objective Assessments Start: 02/09/18 11:30 Freq: NEEDED Status: Active Protocol: Document 02/09/18 11:31 AB (Rec: 02/09/18 11:46 AB [id number]) Orientation Orientation/Cognition Level of Alertness Alert Orientation Name Safety Awareness Decreased Safety Awareness Memory Description Short Term Impaired Licensed Appraiser Impaired Strength Lower Extremity Strength Assessment Bilaterally Impaired M6 PT-IP Treatment Start: 02/09/18 11:30 Freq: NEEDED Status: Active Protocol: Document 02/09/18 11:46 AB (Rec: 02/09/18 11:47 AB [id number]) Physical Therapy Treatment Other Treatments Other Treatment Performed educated pt's spouse and daughter regarding pt's current level of mobility and recommendations. informed counseling case manager regarding recommendations and family wanting to talk to counseling case manager M7 PT-IP Assessment and Plan Start: 02/09/18 11:30 Freq: NEEDED Status: Active Protocol: Document 02/09/18 11:31 AB (Rec: 02/09/18 11:46 AB [id number]) PT Summary Assessment and Plan Potential Rehabilitation Potential Fair Status of Condition at Evaluation Evolving Summary Impairments Strength Balance Coordination Cognition Bed Mobility Transfers Gait Activity Tolerance Assessment Summary pt requires one person mod A with mobility and max cues for all tasks. spouse is not sure if she can handle pt at home but wants pt to go home if possible. daughter stated that pt needs to be independent before he can go home as spouse will not be able to assist him much physically. pt will require SNF rehab at this time. Goals Bed Mobility Goal Standby Assistance Transfer Goal Standby Assistance Gait Goal Standby Assistance Gait Distance 100 Days to Meet Goals 3 Frequency of Treatment Frequency Of Treatment Twice a Day Treatment Plan Physical Therapy Treatment Plan Bed Mobility Training Transfer Training Gait Training Therapeutic Exercise Balance Retraining Post Op Education Discharge Planning Hot or Cold Pack Neuromuscular Re-ed Coordination Retraining Manual Therapy Recommendations To Nursing Amount of Assist Needed 1 Person Assist Discharge Recommendations PT Discharge Recommendations SNF Rehab Visit Care Team Role Provider Type Doc Mon MD Other Providers Physician Primary Care Provider Cory Vásquez MD Emergency Provider Physician Jensen Nieto MD Admit Provider Physician Attending Provider
--- NOTE | 2018-02-09 12:55 | PC.NURSE ---
AT APPROX 1230 PT SOB DIFFICULTY COMPLETING SENTENCES, RR 25 WITH ABDOMINAL MOVEMENT. O2 SATS 94% RA. APPLIED 2L NC. SATS 97% R.T. NOTIFIED.
--- NOTE | 2018-02-09 13:13 | PM.PN.1 ---
Subjective Interval history: Patient with difficult night. Not complaining of any pain. Had some respiratory distress last night. Was given extra Lasix and seems to be doing better. Very restless. Is wishing to go home. Slightly more clear this morning. No headaches. No other changes. Date Patient Seen: 02/09/18 Time Patient Seen: 13:13 Exam Vital Signs (past 8 hours): Vital Signs - 8 hr 02/09/18 05:58 02/09/18 06:10 02/09/18 06:18 Temperature Pulse Rate Respiratory Rate Blood Pressure Pulse Oximetry 95 95 95 02/09/18 07:30 02/09/18 07:45 02/09/18 12:57 Temperature 98.1 F Pulse Rate 88 Respiratory Rate 20 25 H Blood Pressure 115/58 L Pulse Oximetry 93 96 94 Pulse Oximetry 94 Oxygen Delivery Method Room Air Oxygen Flow Rate 3 Objective Labs Result Diagrams: 02/09/18 05:02 02/09/18 05:02 Labs: Laboratory Results - last 24 hr 02/09/18 02/09/18 05:02 05:02 WBC 90.4 H* RBC 3.71 L Hgb 10.5 L Hct 32.8 L MCV 88.6 MCH 28.2 MCHC 31.8 RDW 16.9 H Plt Count 97 L Neut % (Auto) Not Reportable Lymph % (Auto) Not Reportable [place] % (Auto) Not Reportable Eos % (Auto) Not Reportable Baso % (Auto) Not Reportable Total Counted 100 Seg Neutrophils % 5.0 L Lymphocytes % (Manual) 1.0 L Atypical Lymphs % 23.0 H Monocytes % (Manual) 68.0 H Eosinophils % (Manual) 1.0 L Blast Cells % 2.0 H Neutrophils # (Manual) 4520 RBC Morphology Not Reportable Poikilocytosis 1+ H Anisocytosis 1+ H Sodium 140 Potassium 4.9 Chloride 101.0 Carbon Dioxide 30.0 BUN 14.0 Creatinine 1.00 Estimated GFR > 60.0 BUN/Creatinine Ratio 14.0 Glucose 93 Calcium 8.5 Total Bilirubin 0.7 AST 52 ALT 31 Alkaline Phosphatase 124 Total Protein 5.5 L Albumin 3.3 L Globulin 2.2 Albumin/Globulin Ratio 1.5 Assessment & Plan Plan: Plan: Care meeting with daughter and . Patient present. 30 min spent. Discussed outcomes expectations my conversation with oncologist who feels that his treatment options are limited. Discussed hospice [facility] Care expectations and outcomes. Family's questions were answered. Hospice consult. PT evaluation. 30 min spent answering questions. Coordinating care.
--- NOTE | 2018-02-09 13:24 | CM.DANOTE ---
DCP: assessment: case received, EMR reviewed and met with pt, his Tianna (home [phone]. has cell..does not use it) and daughter Ankita Russo/Lina Fitzpatrick cell: [phone]. Introduced self and role. (pt quite confused still, does not participate in the conversation). DCP template completed with info known at this time. Pt is an 82 year old male who admitted yesterday to care of [facility] providers. PCP: Dr. Mon who is seeing pt today. Pt carries dx of hairy cell leukemia under oncology care in [place]. Per family understanding there are few to no options for tx left to him in term of curative care. Tianna, who appears frail and exhausted and is frequently tearful, has been caring for pt at home. She reports pt has used alcohol for much of adult life, 1.75 litres of whiskey a week per Ankita and has been functional. Tianna says as his illness has progressed his appetite has decreased greatly and whiskey intake remained same. He made decision to stop alcolhol use a week ago and Dr. Mon put him on librium to help him do this at home. Tianna says since then his though process has worsened. His functional abilites have declined greatly and he won't eat. Tianna and Ankita do state that pt's desire has been do everything that can be done to keep me alive. Dr. Mon came back during clinic break and discussion held with family, pt and Dr. Mon. Outcome: [facility] info visit is now set for 0900 tomorrow w Thalia. Goal: options for care in future. SNF at d/c/[facility] reviewing. (Sheryl). Goal: medical and functional stability and then home with Tianna's care and family/caregiver assist as indicated. Tianna seems very overwhelmed today. Anikta appears very supportive, has cancelled a family trip to [place] that was to have started today and will stay here to support her parents. P: follow with family, [facility] and Sheryl/[facility] tomorrow.... PASRR will be done when d/c dispo has been confirmed.
[2018-02-09] MEDS: LORazepam 2 MG/ML SYRINGE 1 MG IV ×2 (14:07→22:04)
--- NOTE | 2018-02-09 14:56 | PC.NURSE ---
AT 1400 PT AGITATED, IMPULSIVE, GETTING OUT OF BED. ORIENTED TO SELF ONLY, CONFUSED AND DISORIENTED. MEDICATED WITH ATIVAN PER EMAR. 1445: PT RESTING IN BED. COOPERATIVE WITH CARE.
--- NOTE | 2018-02-09 15:51 | PT.IPTN ---
Physical Therapy Treatment Note M2 PT-IP Current Condition Start: 02/09/18 11:30 Freq: NEEDED Status: Active Protocol: Document 02/09/18 11:31 AB (Rec: 02/09/18 11:46 AB [id number]) Physical Therapy Current Condition Current Condition Evaluation Date 02/09/18 Treatment Diagnosis cancer, detox; difficulty in walking Onset Date 02/08/18 M3 PT-IP Subjective Start: 02/09/18 11:30 Freq: NEEDED Status: Active Protocol: Document 02/09/18 15:50 AB (Rec: 02/09/18 15:51 AB [id number]) Subjective Physical Therapy Visit Type Type Patient Refusal Notes nurse stated that pt is getting restless and is confused and will give pt ativan. talked to pt regarding therapy and moving around and pt refused. pt is confused and agitated. will f /u tomorrow.
[2018-02-09 16:28] LABS: Acinetobacter baumannii Not Detected (Not Detect); Candida albicans Not Detected (Not Detect); Candida glabrata Not Detected (Not Detect); Candida krusei Not Detected (Not Detect); Candida parapsilosis Not Detected (Not Detect); Candida tropicalis Not Detected (Not Detect); E. coli Not Detected (Not Detect); Enterobacter cloacae complex Not Detected (Not Detect); Enterobacteriaceae species Not Detected (Not Detect); Enterococcus species Not Detected (Not Detect); Haemophilus influenzae Not Detected (Not Detect); Listeria monocytogenes Not Detected (Not Detect); Neisseria meningitidis Not Detected (Not Detect); Proteus species Not Detected (Not Detect); Pseudomonas aeruginosa Not Detected (Not Detect); Serratia marcescens Not Detected (Not Detect); Staphylococcus species Not Detected (Not Detect); Streptococcus agalactiae (Gr B Not Detected (Not Detect); Streptococcus pneumonia Not Detected (Not Detect); Streptococcus pyogenes (Gr A) Not Detected (Not Detect); Streptococcus species Not Detected (Not Detect)
[2018-02-10] VITALS (13 sets, daily range): BP systolic 114–147; BP diastolic 49–82; PULSE 84–99; RESP 16–22; TEMP 36.4–37.5; O2SAT 88–100
[2018-02-10] MEDS: LORazepam 2 MG/ML SYRINGE 1 MG IV ×2 (01:24→19:40)
[2018-02-10] MEDS: SODIUM CHLORIDE 0.9% FLUSH 10 ML IV ×3 (01:28→22:14)
[2018-02-10 05:22] LABS: Hematocrit 31.8 % (41-53); Hemoglobin 10.1 g/dL (13.5-17.5); Mean Corpuscular HGB Conc 31.8 % (30-36); Mean Corpuscular Volume 88.1 fL (80-100); Platelet Count 88 X10^3/uL (150-400); Red Blood Cell Count 3.61 X10^6/uL (4.5-5.9); Red Cell Distribution Width 16.5 % (11.6-14.8)
[2018-02-10 05:24] LABS: Alanine Aminotransferase 33 IU/L (21-72); Albumin Globulin Ratio 1.4 (1.0-2.8); Alkaline Phosphatase 121 U/L (38-126); Aspartate Aminotransferase 48 IU/L (17-59); BUN Creatinine Ratio 13.3 (6-22); Bilirubin Total 0.7 mg/dL (0.2-1.3); Calcium 8.4 mg/dL (8.4-10.2); Estimated Glomerular Filt Rate > 60.0 mL/min (>60); Globulin 2.2 g/dL (1.7-4.1); Glucose 109 mg/dL (80-110); HEMOLYSIS < 15 (0-50); Potassium 4.5 mmol/L (3.4-5.1); Sodium 140 mmol/L (137-145); Total Protein 5.2 g/dL (6.3-8.2)
[2018-02-10 05:26] LABS: White Blood Cell Count 88.7 X10^3/uL (4.5-11.0)
[2018-02-10] MEDS: ALBUTEROL 2.5 MG/3 ML NEB INH ×2 (07:19→13:29)
[2018-02-10 07:21] LABS: Neutrophils Absolute Manual 9757 /uL (3000-5900); Total Cells Counted 100
[2018-02-10 07:22] LABS: Hypochromasia 2+
[2018-02-10 07:23] LABS: Anisocytosis 2+; Poikilocytosis 1+
[2018-02-10 07:26] LABS: Hypersegmented Neutrophils 2+
--- NOTE | 2018-02-10 08:17 | RT ---
pt was on nc-2 lpm with spo2 96% sat
--- NOTE | 2018-02-10 08:47 | PM.PN.1 ---
Subjective Interval history: Patient overall feeling about the same. No complaints. Still somewhat fatigued. Still somewhat slow but awake and alert. No other changes or complaint. Date Patient Seen: 02/10/18 Time Patient Seen: 08:48 Exam Vital Signs (past 8 hours): Vital Signs - 8 hr 02/10/18 01:26 02/10/18 04:33 02/10/18 04:51 Temperature 98.2 F 98.3 F Pulse Rate 97 H 91 H Respiratory Rate 16 16 Blood Pressure 139/70 H 147/79 H Pulse Oximetry 95 93 95 02/10/18 07:23 02/10/18 08:00 Temperature 97.6 F Pulse Rate 99 H Respiratory Rate 16 Blood Pressure 114/67 Pulse Oximetry 96 93 Pulse Oximetry 93 Fraction of Inspired Oxygen 28 Oxygen Delivery Method Nasal Cannula Oxygen Flow Rate 2 Narrative Exam Narrative: Alert elderly male fatigued in appearance in no acute distress HEENT exam is unremarkable neck is supple without adenopathy JVD or bruits lungs diffuse mild wheeze with occasional crackles heart regular rate and rhythm unchanged abdomen is soft positive bowel sounds nontender extremities actually decreased edema with decreased erythema and no warmth. Neurologic exam is nonfocal Objective Labs Result Diagrams: 02/10/18 04:59 02/10/18 04:59 Labs: Laboratory Results - last 24 hr 02/09/18 02/10/18 02/10/18 14:35 04:59 04:59 WBC 88.7 H* RBC 3.61 L Hgb 10.1 L Hct 31.8 L MCV 88.1 MCH 28.0 MCHC 31.8 RDW 16.5 H Plt Count 88 L Total Counted 100 Seg Neutrophils % 11.0 L D Lymphocytes % (Manual) 13.0 L D Atypical Lymphs % 62.0 H Monocytes % (Manual) 13.0 H Blast Cells % 1.0 H Neutrophils # (Manual) 9757 H Hypersegmented Neuts 2+ RBC Morphology Not Reportable Hypochromasia 2+ H Poikilocytosis 1+ H Anisocytosis 2+ H Sodium 140 Potassium 4.5 Chloride 101.0 Carbon Dioxide 31.0 BUN 12.0 Creatinine 0.90 Estimated GFR > 60.0 BUN/Creatinine Ratio 13.3 Glucose 109 Calcium 8.4 Total Bilirubin 0.7 AST 48 ALT 33 Alkaline Phosphatase 121 Total Protein 5.2 L Albumin 3.0 L Globulin 2.2 Albumin/Globulin Ratio 1.4 A. baumannii (PCR) Not detected Tracey albicans (PCR) Not detected C. glabrata (PCR) Not detected C. krusei (PCR) Not detected C. parapsilosis (PCR) Not detected C. tropicalis (PCR) Not detected Enterobacteriac sp PCR Not detected E. cloacae complex PCR Not detected Enterococcus sp PCR Not detected E. coli (PCR) Not detected H. influenzae (PCR) Not detected Klebsiella oxytoca PCR Not detected Klebsiella pneumoniae Not detected List. monocytogenes PCR Not detected N. meningitidis (PCR) Not detected Proteus species (PCR) Not detected Serratia marcescens PCR Not detected Staphylococcus sp PCR Not detected Staph aureus (PCR) Not detected mecA-Methicil Res Gene Not Reportable Streptococcus sp PCR Not detected Group A Strep (PCR) Not detected Strep agalactiae (PCR) Not detected Strep pneumoniae (PCR) Not detected P. aeruginosa (PCR) Not detected Ping/B-Vanco Res Genes Not Reportable KPC-Carbap Res Gene PCR Not Reportable Assessment & Plan Plan: Plan: Weakness. Still pretty significant. Long-term outcome is unclear but we should be able to improve function hopefully. We will continue physical therapy and consider movement to fdc for improvement as well as we can before transfer home. Hairy cell leukemia. No definitive treatment. White count is slightly improved but I suspect that is not a significant change no long-term treatment will have to see how things go. Infectious disease. Unclear whether patient has responded well although only 24 hr and Zithromax. White count slightly down lung exam really not changed will continue for now. Cultures have been negative to date. Overall at this point will continue antibiotics and see how the next 1-2 weeks ago. Hypertension. Stable off meds. Metabolic encephalopathy. This is probably a combination of multiple issues in this gentleman I do think we have some pulmonary compromise what that represents is unclear at this point hoping to respond to IV antibiotics. Most likely related to his leukemia which would be a poor response with discussed with family and 1 to give us much chance over the next 7-10 days as we can't improve. We will see how things go. Certainly clear that when he started. Do not believe this is related to alcohol but could still be related to his benzodiazepines. Will follow. Disposition. Patient is still slightly improved. We discussed with family will have hospice come in today. Consult. Family would like to give him some and chance that improvement and we will continue with physical therapy and antibiotics and fluids. Hope for discharge to fdc with decision depending on how he does for transfer home either on his own or with hospice.
--- NOTE | 2018-02-10 08:52 | P.PN_ITS ---
Subjective Interval history: Patient overall feeling about the same. No complaints. Still somewhat fatigued. Still somewhat slow but awake and alert. No other changes or complaint. Date Patient Seen: 02/10/18 Time Patient Seen: 08:48 Exam Vital Signs (past 8 hours): Vital Signs - 8 hr 3 02/10/18 01:26 02/10/18 04:33 02/10/18 04:51 Temperature 98.2 F 98.3 F Pulse Rate 97 H 91 H Respiratory Rate 16 16 Blood Pressure 139/70 H 147/79 H Pulse Oximetry 95 93 95 3 02/10/18 07:23 02/10/18 08:00 Temperature 97.6 F Pulse Rate 99 H Respiratory Rate 16 Blood Pressure 114/67 Pulse Oximetry 96 93 Pulse Oximetry 93 Fraction of Inspired Oxygen 28 Oxygen Delivery Method Nasal Cannula Oxygen Flow Rate 2 Narrative Exam Narrative: Alert elderly male fatigued in appearance in no acute distress HEENT exam is unremarkable neck is supple without adenopathy JVD or bruits lungs diffuse mild wheeze with occasional crackles heart regular rate and rhythm unchanged abdomen is soft positive bowel sounds nontender extremities actually decreased edema with decreased erythema and no warmth. Neurologic exam is nonfocal Objective Labs Result Diagrams: 02/10/18 04:59 02/10/18 04:59 Labs: Laboratory Results - last 24 hr 02/09/18 02/10/18 02/10/18 14:35 04:59 04:59 WBC 88.7 H* RBC 3.61 L Hgb 10.1 L Hct 31.8 L MCV 88.1 MCH 28.0 MCHC 31.8 RDW 16.5 H Plt Count 88 L Total Counted 100 Seg Neutrophils % 11.0 L D Lymphocytes % (Manual) 13.0 L D Atypical Lymphs % 62.0 H Monocytes % (Manual) 13.0 H Blast Cells % 1.0 H Neutrophils # (Manual) 9757 H Hypersegmented Neuts 2+ RBC Morphology Not Reportable Hypochromasia 2+ H Poikilocytosis 1+ H Anisocytosis 2+ H Sodium 140 Potassium 4.5 Chloride 101.0 Carbon Dioxide 31.0 BUN 12.0 Creatinine 0.90 Estimated GFR > 60.0 BUN/Creatinine Ratio 13.3 Glucose 109 Calcium 8.4 Total Bilirubin 0.7 AST 48 ALT 33 Alkaline Phosphatase 121 Total Protein 5.2 L Albumin 3.0 L Globulin 2.2 Albumin/Globulin Ratio 1.4 A. baumannii (PCR) Not detected Tracey albicans (PCR) Not detected C. glabrata (PCR) Not detected C. krusei (PCR) Not detected C. parapsilosis (PCR) Not detected C. tropicalis (PCR) Not detected Enterobacteriac sp PCR Not detected E. cloacae complex PCR Not detected Enterococcus sp PCR Not detected E. coli (PCR) Not detected H. influenzae (PCR) Not detected Klebsiella oxytoca PCR Not detected Klebsiella pneumoniae Not detected List. monocytogenes PCR Not detected N. meningitidis (PCR) Not detected Proteus species (PCR) Not detected Serratia marcescens PCR Not detected Staphylococcus sp PCR Not detected Staph aureus (PCR) Not detected mecA-Methicil Res Gene Not Reportable Streptococcus sp PCR Not detected Group A Strep (PCR) Not detected Strep agalactiae (PCR) Not detected Strep pneumoniae (PCR) Not detected P. aeruginosa (PCR) Not detected Ping/B-Vanco Res Genes Not Reportable KPC-Carbap Res Gene PCR Not Reportable Assessment & Plan Plan: Plan: Weakness. Still pretty significant. Long-term outcome is unclear but we should be able to improve function hopefully. We will continue physical therapy and consider movement to care home for improvement as well as we can before transfer home. Hairy cell leukemia. No definitive treatment. White count is slightly improved but I suspect that is not a significant change no long-term treatment will have to see how things go. Infectious disease. Unclear whether patient has responded well although only 24 hr and Zithromax. White count slightly down lung exam really not changed will continue for now. Cultures have been negative to date. Overall at this point will continue antibiotics and see how the next 1-2 weeks ago. Hypertension. Stable off meds. Metabolic encephalopathy. This is probably a combination of multiple issues in this gentleman I do think we have some pulmonary compromise what that represents is unclear at this point hoping to respond to IV antibiotics. Most likely related to his leukemia which would be a poor response with discussed with family and 1 to give us much chance over the next 7-10 days as we can't improve. We will see how things go. Certainly clear that when he started. Do not believe this is related to alcohol but could still be related to his benzodiazepines. Will follow. Disposition. Patient is still slightly improved. We discussed with family will have hospice come in today. Consult. Family would like to give him some and chance that improvement and we will continue with physical therapy and antibiotics and fluids. Hope for discharge to care home with decision depending on how he does for transfer home either on his own or with hospice.
[2018-02-10] MEDS: SODIUM CHLORIDE 0.9% 250 ML 21 ML IV (09:03)
[2018-02-10] MEDS: CEFTRIAXONE 2 GM/50 ML FROZ.PIGGY IV (09:04)
[2018-02-10] MEDS: FUROSEMIDE 20 MG/2 ML VIAL IV ×2 (09:06→22:14)
[2018-02-10] MEDS: AZITHROMYCIN 500 MG in DEXTROSE 5% IN WATER 250 ML IV (09:53)
--- NOTE | 2018-02-10 14:02 | CM.DPC ---
DCP: continued: [facility] was here this morning as planned and met with Tianna and Ankita. Pt expressing a very strong desire for home. Dr. Mon was here and stated that, ideally, pt would d/c to whatever setting on [facility]. After discussion with Thalia the decision by family and pt is home with [facility]. DME is to be delivered tomorrow and pt will d/c home via ambulance on Thursday, as per plan discussed with Dr. Mon and family, with [facility] RN to open pt to service at the home between 1000 and 1100. Ankita is coordinating family members to stay at the home and care for pt. She is currently not working and will be there to assist. Tianna states she feels very relieved by this plan and pt after decision appearing more at ease. All are aware that another DCPlanner will be taking over for next 2 days and will follow for the details of this plan. Ankita remains the family contact at cell [phone]. Message was left for Dr. Mon at clinic re spefics of d/c plan. [facility] is updated and bed there is released. P: Home Monday 02/12 Ambulance: arrive by 1000 [facility] RN will be at home by 1100.
--- NOTE | 2018-02-10 14:30 | PC.NURSE ---
Day Shift Note Pt opens eyes periodically but is minimally communicative, not answering any questions at this time. Family tearful and at bedside. Pt incontinent of urine - pt declined patient turns and changing of brief x2 this shift. Brief changed and patient turned at 1430. Pt appears comfortable and without pain.
--- NOTE | 2018-02-10 15:41 | PC.NURSE ---
Patient is resting in bed w/ lots of family at bedside. Family is very tearful at bedside, this nurse did visual check on patient but agreed to return back to bedside for assessment when family members have time with patient.
[2018-02-11] VITALS (8 sets, daily range): BP systolic 153–158; BP diastolic 75–82; PULSE 91–103; RESP 20–24; TEMP 36.9–37.5; O2SAT 83–88
[2018-02-11] MEDS: ALBUTEROL 2.5 MG/3 ML NEB INH ×2 (07:19→13:06)
[2018-02-11] MEDS: SODIUM CHLORIDE 0.9% FLUSH 10 ML IV ×2 (09:42→13:57)
[2018-02-11] MEDS: MINERAL OIL/PETROL OPHTH OINT 3.5 GM 1 APPLIC EYE-BOTH (09:43)
[2018-02-11] MEDS: SCOPOLAMINE 1 PATCH TOP (09:43)
--- NOTE | 2018-02-11 10:21 | CM.DPC ---
Addendum entered by Suki Valencia 02/11/18 15:44: Called [facility] and scheduled a 1000 transport to patients home. rn mobile will admit patient at 1100. Family aware and agreeable. RN and CABLE SYSTEMS INSTALLER Notified. Original Note: Per RN daughter/Jayashree would like to discuss possibly delaying DME delivery as patient has rapidly declined. Spoke with MD: patient is on decline but to follow up with Dr. Mon tomorrow with determining immediate needs. Called [facility]: If family delays DME soonest admit date will be Thursday. Met with patient, Jayashree, /Celestine, and [id number] Vaishali: All concerned regarding patients comfort and ability to transfer given patient's decline. After lengthy discussion family agreeable to DME being delivered today as planned and possible discharge home tomorrow pending patients stability. Family will discuss patients possible expiration with Dr. Mon tomorrow to determine if discharge home will be appropriate or not. Plan: Home with hospice vs at .
--- NOTE | 2018-02-11 13:20 | PM.PN.1 ---
Subjective Interval history: The doctor Gerson of [facility] for Dr. Mon a new patient to me Mr. Doc Chavis. Patient not nearly as alert as yesterday a fading quickly with the diagnosis of his hairy cell leukemia. Discussion today with the patient as well as family to further review their decision to initiate hospice therapy. They felt strongly that patient would not benefit from further treatment with respect to his leukemia and have seen a fairly rapid decline in his overall level of consciousness and function. At their request I withdrew number the things were doing 6 she has cardiac monitoring and routine vitals and medications. They also request if they could delay and initiating hospice bringing supplies into the home for the patient anticipated discharge tomorrow for another day or so. I reviewed that with care management at length. Date Patient Seen: 02/11/18 Time Patient Seen: 08:30 Exam Vital Signs (past 8 hours): Vital Signs - 8 hr 02/11/18 06:20 02/11/18 07:20 02/11/18 08:25 Temperature 99.5 F 98.5 F Pulse Rate 101 H 96 H 103 H Respiratory Rate 22 22 20 Blood Pressure 153/75 H 156/78 H Pulse Oximetry 85 L 85 L 88 L 02/11/18 08:30 02/11/18 08:56 02/11/18 13:07 Temperature Pulse Rate 91 H Respiratory Rate 24 Blood Pressure Pulse Oximetry 85 L 88 L 83 L Pulse Oximetry 83 Fraction of Inspired Oxygen 21 Oxygen Delivery Method Room Air Oxygen Flow Rate 0 Narrative Exam Narrative: Patient extremely weak not very alert not responding to me verbally at all I eyes closed pale in appearance arms moving but not apparently purposefully. Lengthy discussion with the patient's daughter about hospice coming and could we discontinue current treatments. Patient pale and dry but not overtly in apparent pain No evident agitation Are movements calm 1 patient's daughter hold his hand and gets close and talks with him. Remainder of exam deferred per patient's daughter's request and intentions. Objective Labs Result Diagrams: 02/10/18 04:59 02/10/18 04:59 Assessment & Plan Plan: Plan: Ms. Chavis in terminal condition secondary to fairly quickly progressing hairy cell leukemia. Patient's family is all supportive about hospice care but have significant questions about whether the patient will even make it through the next 24-48 hours to get home for hospice care. They wonder if they can defer bring hospice related supplies into the home today just in case the patient does not survive through the next 24 hr. They have requested that we discontinue treatments at this point and so I have discontinued heart monitors his vital sign frequency IVs and medications. I think that with the apparent decline between today and yesterday they may well be right in that the patient may be on a very quick declining course with an anticipated demise in the next 24-48 hours. Have instituted comfort care measures and anticipate that if the patient does survive the next 24-48 hours that they will be able to be continued through the auspices of hospice
--- NOTE | 2018-02-11 13:33 | P.PN_ITS ---
Subjective Interval history: The doctor Gerson of [facility] for Dr. Mon a new patient to me Mr. Doc Chavis. Patient not nearly as alert as yesterday a fading quickly with the diagnosis of his hairy cell leukemia. Discussion today with the patient as well as family to further review their decision to initiate hospice therapy. They felt strongly that patient would not benefit from further treatment with respect to his leukemia and have seen a fairly rapid decline in his overall level of consciousness and function. At their request I withdrew number the things were doing 6 she has cardiac monitoring and routine vitals and medications. They also request if they could delay and initiating hospice bringing supplies into the home for the patient anticipated discharge tomorrow for another day or so. I reviewed that with care management at length. Date Patient Seen: 02/11/18 Time Patient Seen: 08:30 Exam Vital Signs (past 8 hours): Vital Signs - 8 hr 3 02/11/18 06:20 02/11/18 07:20 02/11/18 08:25 Temperature 99.5 F 98.5 F Pulse Rate 101 H 96 H 103 H Respiratory Rate 22 22 20 Blood Pressure 153/75 H 156/78 H Pulse Oximetry 85 L 85 L 88 L 3 02/11/18 08:30 02/11/18 08:56 02/11/18 13:07 Temperature Pulse Rate 91 H Respiratory Rate 24 Blood Pressure Pulse Oximetry 85 L 88 L 83 L Pulse Oximetry 83 Fraction of Inspired Oxygen 21 Oxygen Delivery Method Room Air Oxygen Flow Rate 0 Narrative Exam Narrative: Patient extremely weak not very alert not responding to me verbally at all I eyes closed pale in appearance arms moving but not apparently purposefully. Lengthy discussion with the patient's daughter about hospice coming and could we discontinue current treatments. Patient pale and dry but not overtly in apparent pain No evident agitation Are movements calm 1 patient's daughter hold his hand and gets close and talks with him. Remainder of exam deferred per patient's daughter's request and intentions. Objective Labs Result Diagrams: 02/10/18 04:59 02/10/18 04:59 Assessment & Plan Plan: Plan: Ms. Chavis in terminal condition secondary to fairly quickly progressing hairy cell leukemia. Patient's family is all supportive about hospice care but have significant questions about whether the patient will even make it through the next 24-48 hours to get home for hospice care. They wonder if they can defer bring hospice related supplies into the home today just in case the patient does not survive through the next 24 hr. They have requested that we discontinue treatments at this point and so I have discontinued heart monitors his vital sign frequency IVs and medications. I think that with the apparent decline between today and yesterday they may well be right in that the patient may be on a very quick declining course with an anticipated demise in the next 24-48 hours. Have instituted comfort care measures and anticipate that if the patient does survive the next 24-48 hours that they will be able to be continued through the auspices of hospice
[2018-02-11] MEDS: LORazepam 2 MG/ML SYRINGE 1 MG IV (13:56)
--- NOTE | 2018-02-11 14:25 | PC.NURSE ---
PT CALM AND COOPERATIVE THIS SHIFT AT APPROX 1330 PT RESTLESS AND UNCOMFORTABLE DURING BRIEF CHANGE. MEDICATED WITH 1 MG ATIVAN. COMFORT CARE CART OUTSIDE ROOM REPLACED BY DIETARY. SEVERAL FAMILY MEMBERS AT BEDSIDE SUPPORTIVE WITH CARE.
[2018-02-11] MEDS: MORPHINE 10 MG/0.5 ML ORAL SYRINGE PO ×2 (14:45→17:26)
--- NOTE | 2018-02-11 15:57 | PC.NURSE ---
Addendum entered by Barber Jackson R.N. 02/11/18 19:36: Patient at 1810 with family at bedside. Post mortum are was performed after family members left bedside. No home arrangements had been made prior to hospital stay. Spoke to family members and oldest daughter Jayashree along with family made the decision to have [facility] home come picker and sorter load and unload patient. [facility] arrived to hospital at 1930 to picker and sorter load and unload patient, paperwork was signed and origionals given to [employer] loss control representative. Copies were placed in patients red folder and given to charge nurse. Original Note: Patient is resting peacefully in room w/ family at bedside. Patient has wet, respritory secretions w/ breathing, scopolamine patch behind the left ear. Patient is non verbal but will open eyes w/ movement and did help assist hold self while changing brief and re-pos. Open skin to coccyx, barrier cream applied along w/ non adhesive cushion pad to coccyx. Call light w/in reach, bed in low pos. alarm active.
--- NOTE | 2018-05-09 11:02 | PM.DS.1 ---
History of Present Illness Date Patient Seen: 02/11/18 Time Patient Seen: 13:34 Chief complaint: CANCER PT,DETOX,DELERIOUS Narrative: Chief complaint: CANCER PT,DETOX,DELERIOUS Narrative: Patient is a 82-year-old male with history of hairy cell leukemia and concern for possible alcohol abuse. Patient stopped drinking last Thursday. Has been on Librium since that time. Otherwise patient had been doing well up until Thursday. Most of history is from . Had a cough. But not much. Just slowly started becoming more confused. Was not eating. Normal urine and bowel function. Saint on things. Not his usual self. Was sleeping. No other changes. Has not drank since last week. Patient has not had any fevers or chills. No visual changes. Was not complaining of headaches. Actually was not complaining of any pain. No nausea or vomiting. No cough. No urinary symptoms. No change in bowel movements. No blood in his stool or blood in any other location. Otherwise review of systems is negative. Patient has a history of hairy cell leukemia and significant edema. He has been feeling his leukemia treatment and recently had been seen in [place]. At that point they did not feel that he was healthy enough for some of the other options available. Some concern that he may be approaching the end of his treatment capability. No other changes. Has not been on active therapy. Discharge Providers Date of admission: 02/08/18 05:21 Primary care physician: Doc oMn MD Consults: 02/08/18 05:21 Consult to Physician Routine Comment: Consulting Provider: Doc Mon Reason for consultation: AMS - DT + leukemia 02/08/18 12:42 Consult to Physical Therapy Evaluate & Treat Comment: weakness and frequent falls Physician Instructions: Evaluate and Treat 02/09/18 13:15 Consult to Physical Therapy Evaluate & Treat Comment: Physician Instructions: Evaluate and Treat Discharge provider: Doc Mon MD Summary Discharge Diagnosis: Urdy cell leukemia Elevated white count Metabolic encephalopathy History of hypertension Hospital Course: Patient was admitted. Thought to be possibly infected. Did not respond to antibiotics. Overall otherwise was not responding and was worsening in state. Was all felt to be secondary to his hairy cell leukemia. After discussion with family and oncologist for progressive worsening and really no change it was elected for comfort care. Patient without complications Status at Discharge Cognitive/behavioral status at discharge: Overall status at discharge: other Exam Vital Signs (past 8 hours): Fraction of Inspired Oxygen 21 Oxygen Delivery Method Room Air Oxygen Flow Rate 0 Narrative Exam Narrative: Alert male not breathing Objective Labs Result Diagrams: 02/10/18 04:59 02/10/18 04:59 Discharge Plan Discharge Plan Patient Disposition: Discharge Data Primary Care Provider: Doc Mon Attending Provider: Jensen Nieto Admit Date/Time: 02/08/18 05:21 Discharges patient from system. Discharge Date/Time: 02/11/18 18:10
== END 2018-02-11 18:10 | disposition expired | DRG 840 ==
LOC: ED 02-08 05:20 → AC 02-08 05:23
PROVIDERS: Admitting Provider Family Medicine; Emergency Provider Emergency Medicine; PCP Family Medicine; Visit Provider Family Medicine
DX: C91.40 Hairy cell leukemia not having achieved remission (principal); G93.41 Metabolic encephalopathy; R06.00 Dyspnea, unspecified; R53.1 Weakness; Z87.891 Personal history of nicotine dependence; I10 Essential (primary) hypertension; F10.11 Alcohol abuse, in remission; Z51.5 Encounter for palliative care
CPT/HCPCS: 36415; 36592; 70450; 71045; 80048; 80053; 81001; 83735; 84145; 84484; 85025; 87040; 87086; 87150; 87205; 93005; 94640; 94760; 96374; 97162; 99282; 99284; 99285; J0696; J1650; J1940; J2060; J3475; J7613